=== PATIENT | male | born 1985 | race African-American/Black ===

== ENCOUNTER 2021-03-08 15:26 | Emergency (ER) | payer SELFPAY ==
[~2021-03-08] VITALS: Ht 182.9 cm; Wt 153.6 kg
[2021-03-08] MEDS ORDERED: IBUPROFEN 400 MG TABLET. PO ONE (17:30)
--- NOTE | 2021-03-08 17:54 | ED.ADGEN ---
Past Medical History Past Medical History: No Pertinent History Past Surgical History: Appendectomy Smoking Status: Former Smoker Alcohol Use: None Drug Use: None General Adult EDM: Chief Complaint: UPPER EXTREMITY INJURY HPI: HPI: Patient is a 35 year old male coming in for right elbow pain after a fall. J ust prior to arrival patient was at a fast food restaurant when he slipped on the floor and fell backwards landing on his right elbow. Patient is left- handed. No other injuries. Otherwise has been well. Complaining of tingling in his fingers on his right Review of Systems: Review of Systems: All other systems within normal limits except for as noted in the HPI Current Medications: Current Medications Medications (Trade) Dose Ordered Sig/Binh Start Time Stop Time Status Last Admin Dose Admin Acetaminophen/ Hydrocodone Bitart (Lortab 5/325) 1 tab 1X ONCE 03/08/21 18:00 03/08/21 18:01 Diphtheria/ Tetanus/Acell Pertussis (ADACEL TDap SYRINGE) 0.5 ml ONCE ONCE 03/08/21 18:00 03/08/21 18:01 Ibuprofen (Motrin) 800 mg 1X ONCE 03/08/21 17:30 03/08/21 17:31 DC 03/08/21 17:34 800 MG Allergies: Allergies: Allergies Coded Allergies Type Severity Reaction Last Updated Verified No Known Drug Allergies 02/18/15 No Physical Exam: PE: Constitutional: Well developed, well nourished, no acute distress, non-toxic appearance. [] HENT: Normocephalic, atraumatic, bilateral external ears normal, oropharynx moist, no oral exudates, nose normal. [] Eyes: PERRLA, EOMI, conjunctiva normal, no discharge. [] Neck: Normal range of motion, no tenderness, supple, no stridor. [] Cardiovascular:Heart rate regular rhythm, no murmur [] Lungs & Thorax: Bilateral breath sounds clear to auscultation [] Abdomen: Bowel sounds normal, soft, no tenderness, no masses, no pulsatile masses. [] Skin: Warm, dry, no erythema, no rash. [] Back: No tenderness, no CVA tenderness. [] Extremities: No tenderness, no cyanosis, no clubbing, ROM intact, no edema. [] Neurologic: Alert and oriented X 3, normal motor function, normal sensory f unction, no focal deficits noted. [] Psychologic: Affect normal, judgement normal, mood normal. [] Current Patient Data: Vital Signs: Vital Signs Date Time Temp Pulse Resp B/P (MAP) Pulse Ox O2 Delivery O2 Flow Rate FiO2 03/08/21 17:04 97.5 17 171/101 (124) 98 Room Air 97.5 EKG: EKG: [] Heart Score: C/O Chest Pain: No Risk Factors: Risk Factors: DM, Current or recent (<one month) smoker, HTN, HLP, family history of CAD, obesity. Risk Scores: Score 0 - 3: 2.5% MACE over next 6 weeks - Discharge Home Score 4 - 6: 20.3% MACE over next 6 weeks - Admit for Clinical Observation Score 7 - 10: 72.7% MACE over next 6 weeks - Early Invasive Strategies Radiology/Procedures: Radiology/Procedures: X-ray of right humerus and forearm EP interpretation: Small chip-like fracture of the right coronoid process. [] Course & Med Decision Making: Course & Med Decision Making Pertinent Labs and Imaging studies reviewed. (See chart for details) Given sling and strict follow-up, tetanus updated. [] Dragon Disclaimer: Dragon Disclaimer: This electronic medical record was generated, in whole or in part, using a voice recognition dictation system. Departure Departure Impression: Primary Impression: Elbow fracture, right Disposition: 01 HOME / SELF CARE / HOMELESS Condition: STABLE Referrals: NO PCP (PCP) JEFERSON LUTZ DO Patient Instructions: Arm Sling Use, [id number] Additional Instructions: Follow-up with orthopedics, Dr. Lutz at: [facility] Hydrocodone Bit/Acetaminophen (HYDROCODONE-APAP 5-325 ) 1 Tab Tablet 1 TAB PO PRN Q6HRS PRN for PAIN for 3 Days, #10 TAB 0 Refills Prov: ADAN ROBERTS MD 03/08/21 ADAN ROBERTS MD Mar 08, 2021 17:54
[2021-03-08] MEDS ORDERED: DIPH,PERTUSS(ACELL),TET VAC/PF 0.5 ML SYRINGE. VAX IM ONE (18:00)
[2021-03-08] MEDS ORDERED: HYDROcodone/APAP 5/325MG 1 TAB TABLET PO ONE (18:00)
[2021-03-08] MEDS ORDERED: HYDR-2761 PO (18:08)
--- NOTE | 2021-03-08 18:22 | RAD ---
EXAMINATION: Right forearm and right humerus radiographs. VIEWS: 2 views of the right humerus and 2 views of the right forearm. COMPARISON: None INDICATION:35 years, Male, pain, fall. FINDINGS: No acute fracture, dislocation or subluxation. No bone erosion or periosteal reaction. Posterior olec ranon enthesophyte. No soft tissue swelling or joint effusion. IMPRESSION: No acute osseous process in the right humerus or forearm. Electronically signed by: Brendan Nagy MD (03/08/2021 6:20 PM) PATEL
[2021-03-08 18:25] VITALS: BP 171/104
== END 2021-03-08 18:25 | disposition home or self-care (01) ==
LOC: ER 15:26
DX: M25.521 Pain in right elbow (principal); G89.11 Acute pain due to trauma; Z87.891 Personal history of nicotine dependence; W01.0XXA Fall on same level from slipping, tripping and stumbling without subsequent striking against object, initial encounter; Y93.89 Activity, other specified; Y92.511 Restaurant or cafe as the place of occurrence of the external cause; Y99.8 Other external cause status
CPT/HCPCS: 73060; 73090; 90471; 90715; 99284; A4565; 99283

== ENCOUNTER 2021-07-22 09:29 | Emergency (ER) | payer SELFPAY ==
[~2021-07-22] VITALS: Ht 182.9 cm; Wt 113.6 kg
[~2021-07-22 09:29] MED LIST: HYDR-2761 PO
[2021-07-22 09:35] VITALS: BP 157/94
[2021-07-22 10:53] LABS: BASO # 0.1 x10^3/uL (0.0-0.2); BASO % 1 % (0-3); EOS # 0.3 x10^3/uL (0.0-0.7); EOS % 3 % (0-3); HEMATOCRIT 39.5 % (39.0-53.0); HEMOGLOBIN 12.6 g/dL (13.0-17.5); LYMPH # 3.9 x10^3/uL (1.0-4.8); LYMPH % 48 % (24-48); MEAN CORPUSCULAR HEMOGLOBIN 25 pg (25-35); MEAN CORPUSCULAR HGB CONC 32 g/dL (31-37); MEAN CORPUSCULAR VOLUME 77 fL (79-100); MONO # 0.7 x10^3/uL (0.0-1.1); MONO % 9 % (0-9); NEUT # 3.1 x10^3/uL (1.8-7.7); NEUT % 38 % (31-73); PLATELET COUNT 292 x10^3/uL (140-400); RED CELL DISTRIBUTION WIDTH 16.8 % (11.5-14.5); WHITE BLOOD COUNT 8.1 x10^3/uL (4.0-11.0)
[2021-07-22 10:54] LABS: BILIRUBIN,URINE NEGATIVE (NEG); CLARITY,URINE CLEAR; COLOR,URINE YELLOW; NITRITE,URINE NEGATIVE (NEG); PH,URINE 5.5 (<5.0-8.0); PROTEIN,URINE NEGATIVE (NEG-TRACE); UROBILINOGEN,URINE 0.2 mg/dL (0.2 mg/dL)
[2021-07-22 11:02] LABS: CALCIUM 8.5 mg/dL (8.5-10.1); CREATININE 1.1 mg/dL (0.7-1.3); GFR 91.6; POTASSIUM 3.9 mmol/L (3.5-5.1)
[2021-07-22 11:04] LABS: BACTERIA,URINE 0 /HPF (0-FEW); RBC,URINE 0 /HPF (0-2); WBC,URINE 0 /HPF (0-4)
[2021-07-22] MEDS ORDERED: IOHEXOL 300 MG/ML 100ML VIAL. IV ONE (11:15)
[2021-07-22 11:16] LABS: ALBUMIN 3.2 g/dL (3.4-5.0); ALBUMIN/GLOBULIN RATIO 0.6 (1.0-1.7); TOTAL BILIRUBIN 0.3 mg/dL (0.2-1.0); TOTAL PROTEIN 8.6 g/dL (6.4-8.2)
--- NOTE | 2021-07-22 11:30 | PHYS DOC ---
Past Medical History Past Medical History: No Pertinent History Past Surgical History: No Surgical History Smoking Status: Former Smoker Alcohol Use: None Drug Use: None General Adult EDM: Chief Complaint: ABDOMINAL PAIN HPI: HPI: Patient is a 35-year-old male presents to the emergency department complaining of a lump to his abdomen is painful to palpation. Patient reports this past Wednesday while he was at a [employer] having fun drinking and laughing, had a coughing spell in which she felt a slight mild discomfort to his mid abdomen area, states it did not seem worrisome at the time however when he woke up the next morning he felt a painful lump that did not seem to go away. Patient reports a constant 2 out of 10 pain to the left on his abdomen, reports it increases to a 10 out of 10 when pressed on or pushed on. Patient denies nausea, vomiting, diarrhea, or constipation. Patient denies seeing blood in his stool or in his urine. Patient denies increased urinary frequency, hematuria, difficulty urination, or other dysuria, patient denies chest pains, chest palpitations, shortness of breath, chest or nasal congestion. Patient denies dizziness, syncopal or near syncopal episodes. Patient denies other physical complaints or physical concerns. Patient reports she has not taken any medications for his abdominal discomfort. Patient reports he does not take prescription medications, has no allergies, reports a past surgical history of an appendectomy in 2005. Review of Systems: Review of Systems: 14 body systems of review of systems have been reviewed. See HPI for pertinent positives and negative responses, otherwise all other systems are negative, nonpertinent or noncontributory. Constitutional: Negative except as outlined in HPI above. Skin: Negative except as outlined in HPI above. Eyes: Negative except as outlined in HPI above. HENT: Negative except as outlined in HPI above. Respiratory: Negative except as outlined in HPI above. Cardiovascular: Negative except as outlined in HPI above. GI: Negative except as outlined in HPI above. : Negative except as outlined in HPI above. Musculoskeletal: Negative except as outlined in HPI above. Integument: Negative except as outlined in HPI above. Neurologic: Negative except as outlined in HPI above. Endocrine: Negative except as outlined in HPI above. Lymphatic: Negative except as outlined in HPI above. Psychiatric: Negative except as outlined in HPI above. Heart Score: C/O Chest Pain: No Risk Factors: Risk Factors: DM, Current or recent (<one month) smoker, HTN, HLP, family history of CAD, obesity. Risk Scores: Score 0 - 3: 2.5% MACE over next 6 weeks - Discharge Home Score 4 - 6: 20.3% MACE over next 6 weeks - Admit for Clinical Observation Score 7 - 10: 72.7% MACE over next 6 weeks - Early Invasive Strategies Current Medications: Current Medications Medications (Trade) Dose Ordered Sig/Binh Start Time Stop Time Status Last Admin Dose Admin Iohexol (Omnipaque 300 Mg/ml) 75 ml 1X ONCE 07/22/21 11:15 07/22/21 11:16 DC 07/22/21 11:13 75 ML Allergies: Allergies: Allergies Coded Allergies Type Severity Reaction Last Updated Verified No Known Drug Allergies 07/22/21 No Physical Exam: PE: Constitutional: Well developed, well nourished, no acute distress, non-toxic appearance. 35-year-old male in no apparent distress. HENT: Normocephalic, atraumatic. Oropharynx moist, pink, no lymphadenopathy of the head or neck appreciated. Bilateral TMs intact and within normal limits. Eyes: Conjunctiva normal, no discharge. Neck: Normal range of motion, no stridor. Cardiovascular: No cyanosis appreciated, distal cap refill less than 2 seconds. Heart sounds S1-S2, regular rate and rhythm. Lungs & Thorax: Patient is in no respiratory distress, no audible adventitious lung sounds appreciated. Lung sounds are clear to auscultation all lung burns. Abdomen: Abdomen round, patient morbidly obese, BMI 34.0, old well-healed surgical scars present, there is a abdominal mass appreciated midline just s uperior to umbilicus, none reducible to palpation, palpation did elicit a pain response, bowel sounds normal all 4 quadrants, there is no rebound tenderness, no Lui sign, no psoas sign, negative McBurney's point tenderness, there is no skin discoloration present to the abdomen. Skin: Warm, dry, no erythema, no rash. Back: No tenderness, no deformities. Extremities: No tenderness, no cyanosis, no clubbing, ROM intact, no edema. Neurologic: Alert and oriented X 3, normal motor function, normal sensory function, no focal deficits noted. Psychologic: Affect normal, judgement normal, mood normal. Current Patient Data: Labs: Laboratory Tests Test 07/22/21 10:42 White Blood Count 8.1 x10^3/uL (4.0-11.0) Red Blood Count 5.10 x10^6/uL (4.30-5.70) Hemoglobin 12.6 g/dL (13.0-17.5) L Hematocrit 39.5 % (39.0-53.0) Mean Corpuscular Volume 77 fL (79-100) L Mean Corpuscular Hemoglobin 25 pg (25-35) Mean Corpuscular Hemoglobin Concent 32 g/dL (31-37) Red Cell Distribution Width 16.8 % (11.5-14.5) H Platelet Count 292 x10^3/uL (140-400) Neutrophils (%) (Auto) 38 % (31-73) Lymphocytes (%) (Auto) 48 % (24-48) Monocytes (%) (Auto) 9 % (0-9) Eosinophils (%) (Auto) 3 % (0-3) Basophils (%) (Auto) 1 % (0-3) Neutrophils # (Auto) 3.1 x10^3/uL (1.8-7.7) Lymphocytes # (Auto) 3.9 x10^3/uL (1.0-4.8) Monocytes # (Auto) 0.7 x10^3/uL (0.0-1.1) Eosinophils # (Auto) 0.3 x10^3/uL (0.0-0.7) Basophils # (Auto) 0.1 x10^3/uL (0.0-0.2) Urine Collection Type Unknown Urine Color Yellow Urine Clarity Clear Urine pH 5.5 (<5.0-8.0) Urine Specific Colome >=1.030 (1.000-1.030) Urine Protein Negative mg/dL (NEG-TRACE) Urine Glucose (UA) Negative mg/dL (NEG) Urine Ketones (Stick) Negative mg/dL (NEG) Urine Blood Negative (NEG) Urine Nitrite Negative (NEG) Urine Bilirubin Negative (NEG) Urine Urobilinogen Dipstick 0.2 mg/dL (0.2 mg/dL) Urine Leukocyte Esterase Negative (NEG) Urine RBC 0 /HPF (0-2) Urine WBC 0 /HPF (0-4) Urine Squamous Epithelial Cells Few /LPF Urine Bacteria 0 /HPF (0-FEW) Urine Mucus Marked /LPF Sodium Level 142 mmol/L (136-145) Potassium Level 3.9 mmol/L (3.5-5.1) Chloride Level 107 mmol/L (98-107) Carbon Dioxide Level 28 mmol/L (21-32) Anion Gap 7 (6-14) Blood Urea Nitrogen 8 mg/dL (8-26) Creatinine 1.1 mg/dL (0.7-1.3) Estimated GFR (Cockcroft-Gault) 91.6 BUN/Creatinine Ratio 7 (6-20) Glucose Level 97 mg/dL (70-99) Calcium Level 8.5 mg/dL (8.5-10.1) Total Bilirubin 0.3 mg/dL (0.2-1.0) Aspartate Amino Transferase (AST) 23 U/L (15-37) Alanine Aminotransferase (ALT) 29 U/L (16-63) Alkaline Phosphatase 97 U/L (46-116) Total Protein 8.6 g/dL (6.4-8.2) H Albumin 3.2 g/dL (3.4-5.0) L Albumin/Globulin Ratio 0.6 (1.0-1.7) L Laboratory Tests 07/22/21 10:42 Laboratory Tests 07/22/21 10:42 Vital Signs: Vital Signs Date Time Temp Pulse Resp B/P (MAP) Pulse Ox O2 Delivery O2 Flow Rate FiO2 07/22/21 09:35 98.6 73 16 157/94 (115) 100 98.6 Radiology/Procedures: Radiology/Procedures: REASON: Midline abdominal mass superior to umbilicus, hernia evaluation PROCEDURE: CT ABD PELV W/ IV CONTRST ONLY Examination: CT of the abdomen pelvis with IV contrast HISTORY: History of the midline of abdominal mass COMPARISON: None available Technique: Axial CT images of the abdomen pelvis were performed with IV contrast. Coronal and sagittal reformats are performed. Exposure: One or more of the following individualized dose reduction techniques were utilized for this examination: 1. Automated exposure control 2. Adjustment of the mA and/or kV according to patient size 3. Use of iterative reconstruction technique FINDINGS: The bibasilar lungs are clear. No evidence of free air identified in the abdomen. The liver, spleen, adrenals grossly appears unremarkable. The gallbladder is mildly distended. The stomach is mildly distended. The pancreas grossly appears unremarkable. Small bowel is nondilated. Feces and gas noted in the colon. Urinary bladder is mildly distended. There is a anterior abdominal wall hernia just to the right of the midline above the umbilicus measuring 5.0 x 3.2 cm containing omentum revision with surrounding mild fat stranding underlying omental infarct is not excluded the neck of the hernia is narrow measuring 7 mm in transverse dimension. The bilateral kidneys enhance symmetrically. No evidence of hydronephrosis Mild degenerative changes lumbar spine and bilateral hip joints. Small subc hondral cystic changes identified in the left acetabulum. IMPRESSION: Anterior abdominal wall hernia just to the right of the midline above the umbilicus measuring 5.0 x 3.2 cm containing omentum within with surrounding mild fat stranding, underlying omental infarct is not excluded . The neck of the hernia is narrow measuring 7 mm in transverse dimension. Electronically signed by: Rolly Lara MD (07/22/2021 11:49 AM) [id number] Course & Med Decision Making: Course & Med Decision Making Pertinent Labs and Imaging studies reviewed. (See chart for details) 35-year-old male, vital signs reviewed, presents to the emergency department concerning painful lump on abdomen after coughing this past Wednesday. Physical examination concerning for abdominal hernia, was unable to reduce during physical examination, will order CBC, CMP, IV saline lock, CT with IV contrast abdomen and pelvis to evaluate for hernia versus other abdominal dyscrasia. Patient is amenable to ED planning. Patient's lab work unremarkable, CT abdomen pelvis reveals fat-containing abdominal hernia, there is a low likelihood of strangulation, patient is not in acute distress, currently denies abdominal discomfort, there is no nausea vomiting, patient is afebrile, vital signs within normal limits. Discussed findings with patient, recommended follow-up with general surgeon for evaluation and treatment of abdominal hernia, follow-up with primary care for ongoing symptoms, return to ER precautions or concerns were reviewed, patient gave verbal understanding of and is amenable to ED discharge planning. Discussed with the patient all findings and diagnostic testing as well as the need to follow-up with their primary care provider for further evaluation and treatment or return to the ED if any new or worsening symptoms. Strict return precautions were also discussed at length, the patient voiced understanding and agreement with the discharge planning. The patient was nontoxic in appearance, in no apparent distress, and hemodynamically stable at the time of disposition. Dragon Disclaimer: Dragon Disclaimer: This electronic medical record was generated, in whole or in part, using a voice recognition dictation system. Departure Departure Impression: Primary Impression: Abdominal hernia Qualified Codes: K46.9 - Unspecified abdominal hernia without obstruction or gangrene Disposition: HOME / SELF CARE / HOMELESS Condition: GOOD Referrals: NO PCP (PCP) KRISTI GARCIA MD Patient Instructions: Hernia Additional Instructions: You were seen today for a lump on your abdomen, a CT scan revealed a hernia. As we discussed, please follow-up with a general surgeon to have this evaluated and repaired. You may see the recommended general surgeon Dr. Garcia or any general surgeon of your choice. Please return to the emergency department for fever or chills, increased severe abdominal discomfort, nausea and vomiting, blood in your stool or vomitus, or other concerns. Thank you for visiting our Emergency Department. It was a pleasure taking care of you today in the emergency department and we appreciate you trusting us with your care. If any additional problems come up don't hesitate to return to visit us. Please follow up with your primary care provider so they can plan additional care if needed and know about the problem that you had. If symptoms worsen come back to the Emergency Department. Any concerning symptoms that start such as chest pain, shortness of air, weakness or numbness on one side of the body, running high fevers or any other concerning symptoms return to the ER. EMERGENCY DEPARTMENT GENERAL DISCHARGE INSTRUCTIONS Thank you for coming to [facility] Emergency Department (ED) [place] and trusting us with you care. We trust that you had a positive experience in our Emergency Department. If you wish to speak to the department management, you may call the Director at [phone]. YOUR FOLLOW UP INSTRUCTIONS ARE FOLLOWS: 1. Do you have a private Doctor? If you do not have a private doctor, please ask for a resource list of physicians or clinics that may be able to assist you with follow up care. 2. The Emergency Physicain has interpreted your x-rays. The X-Ray specialist will also review them. If there is a change in the findings, you will be notified in 48 hours when at all possible. 3. A lab test or culture has been done, your results will be reviewed and you will be notified if you need a change in treatment. ADDITIONAL INSTRUCTIONS AND INFORMATION: 1. Your care today has been supervised by a physician who is specially trained in emergency care. Many problems require more than one evaluation for a complete diagnosis and treatment. We recommend that you schedule your follow up appointment as recommended to ensure complete treatment of you illness or injury. If you are unable to obtain follow up care and continue to have a problem, or if your condition worsens, we recommend that you return to the ED. 2. We are not able to safely determine your condition over the phone nor are we able to give sound medical advice over the phone. For these safety reasons, if you call for medical advice we will ask you to come to the ED for further evaluation. 3. If you have any questions regarding these discharge instructions please call the ED at [phone]. SAFETY INFORMATION: In the interest of safety, wellness, and injury prevention; we encourage you to wear your sealbelt, if you smoke; quite smoking, and we encourage family to use a protective helmet for bicycling and other sporting events that present an increased risk for head injury. IF YOUR SYMPTOMS WORSEN OR NEW SYMPTOMS DEVELOP, OR YOU HAVE CONCERNS ABOUT YOUR CONDITION; OR IF YOUR CONDITION WORSENS WHILE YOU ARE WAITING FOR YOUR FOLLOW UP APPOINTM ENT; EITHER CONTACT YOUR PRIMARY CARE DOCTOR, THE PHYSICIAN WHOSE NAME AND NUMBER YOU WERE GIVEN, OR RETURN TO THE ED IMMEDIATELY. MARIO GREEN APRN Jul 22, 2021 11:30
--- NOTE | 2021-07-22 11:51 | RAD ---
Examination: CT of the abdomen pelvis with IV contrast HISTORY: History of the midline of abdominal mass COMPARISON: None available Technique: Axial CT images of the abdomen pelvis were performed with IV contrast. Coronal and sagitta l reformats are performed. Exposure: One or more of the following individualized dose reduction techniques were utilized for th is examination: 1. Automated exposure control 2. Adjustment of the mA and/or kV according to patien t size 3. Use of iterative reconstruction technique FINDINGS: The bibasilar lungs are clear. No evidence of free air identified in the abdomen. The liver, spleen, adrenals grossly appears unremarkable. The gallbladder is mildly distended. The st omach is mildly distended. The pancreas grossly appears unremarkable. Small bowel is nondilated. Fece s and gas noted in the colon. Urinary bladder is mildly distended. There is a anterior abdominal wall hernia just to the right of the midline above the umbilicus measur ing 5.0 x 3.2 cm containing omentum revision with surrounding mild fat stranding underlying omental i nfarct is not excluded the neck of the hernia is narrow measuring 7 mm in transverse dimension. The bilateral kidneys enhance symmetrically. No evidence of hydronephrosis Mild degenerative changes lumbar spine and bilateral hip joints. Small subchondral cystic changes nicole ntified in the left acetabulum. IMPRESSION: Anterior abdominal wall hernia just to the right of the midline above the umbilicus measuring 5.0 x 3 .2 cm containing omentum within with surrounding mild fat stranding, underlying omental infarct is no t excluded . The neck of the hernia is narrow measuring 7 mm in transverse dimension. Electronically signed by: Rolly Lara MD (07/22/2021 11:49 AM) [id number]
== END 2021-07-22 12:34 | disposition home or self-care (01) ==
LOC: ER 09:29
DX: K46.9 Unspecified abdominal hernia without obstruction or gangrene (principal); Z87.891 Personal history of nicotine dependence
CPT/HCPCS: 36415; 74177; 80053; 81001; 85025; 99285; Q9967